=== PATIENT | female | born 1930 | race Caucasian/White ===

== ENCOUNTER 2016-10-07 10:44 | Day surgery (SDC) | payer OTHER ==
[~2016-10-07] VITALS: Ht 158.8 cm; Wt 81.0 kg
[~2016-10-07 10:44] MED LIST: ALBUTEROL SULF8.5 GM IH; ALPRAZOLAM0.25 M2 PO; AMLODIPINE BESY10 MG PO; AMLODIPINE BESYL5 MG PO; ASPIRIN325 MG PO; AZELASTINE137 MCG/0. BOTH NARES; BENADRYL25 MG PO; CALCITRIOL0.25 MCG PO; CLARITIN10 M3 PO; COUMADIN2 MG PO; COUMADIN2.5 MG PO; COUMADIN4 MG PO; COUMADIN5 MG PO; COUMADIN7.5 MG PO; DEBROX15 ML RIGHT EAR; DUONEB 2.5-0.5 M3 ML AEROSOL; FERREX 150 PLU1 EACH PO; FISH OIL 1,0001 EA10 PO; FISH OIL500 MG PO; FLONASE ALLERG9.9 ML BOTH NARES; FLONASE16 G1 BOTH NARES; FUROSEMIDE40 MG PO; GERI-LANTA LIQ355 ML PO; HUMALOG100 UNIT/1 SC; HYDROCODON-ACE1 EA11 PO; HYDROCODON-ACE1 EACH PO; LASIX80 MG PO; LIPITOR20 MG PO; LORATADINE10 M2 PO; LORTAB 5-325 M1 EACH PO; METOLAZONE5 MG PO; METOPROLOL TART50 MG PO; NEPHRO-VITE,1 TABLET PO; NIFEREX-150,FE150 MG PO; NITROSTAT0.4 MG SL; NOVOLOG PE100 UNITS/ SC; OMEPRAZOLE40 M1 PO; PAIN RELIEF650 MG PO; PROAIR RESPICL90 MCG IH; PROTONIX20 MG PO; PROTONIX40 MG PO; SENNA S TABLET1 EACH PO; SINGULAIR10 MG PO; SYMBICORT60 INHALAT IH; TYLENOL REGULA325 MG PO; VITAMIN D31000 UNI2 PO; VITAMIN D31000 UNIT PO; WARFARIN SODIU2.5 MG PO; WARFARIN SODIU7.5 MG PO; ZOLOFT50 MG PO; ZYRTEC10 M2 PO; ZYRTEC10 M3 PO
[2016-10-07 12:07] LABS: POINT-OF-CARE METER ID UU13113696
[2016-10-07 13:01] LABS: METH RESISTANT S AUREUS PCR NEGATIVE (NEGATIVE)
[2016-10-07 13:02] LABS: PROBE CHECK PASS; SPECIMEN PROCESSING CONTROL PASS
== END 2016-10-07 13:35 | disposition home or self-care (01) ==
LOC: CATH 10:44
PROVIDERS: Surgery
DX: T82.858A Stenosis of other vascular prosthetic devices, implants and grafts, initial encounter (principal); Y83.2 Surgical operation with anastomosis, bypass or graft as the cause of abnormal reaction of the patient, or of later complication, without mention of misadventure at the time of the procedure; I12.0 Hypertensive chronic kidney disease with stage 5 chronic kidney disease or end stage renal disease; E11.22 Type 2 diabetes mellitus with diabetic chronic kidney disease; N18.6 End stage renal disease; Z99.2 Dependence on renal dialysis; M19.90 Unspecified osteoarthritis, unspecified site; Z98.61 Coronary angioplasty status; Z95.0 Presence of cardiac pacemaker
CPT/HCPCS: 82948; 87641; C1725; C1769; C1894; J1644; J2250; J3010

== ENCOUNTER 2017-01-11 09:20 | Day surgery (SDC) | payer OTHER ==
[~2017-01-11] VITALS: Ht 157.5 cm; Wt 85.7 kg
[2017-01-11 10:10] LABS: POINT-OF-CARE METER ID UU13113696
[2017-01-11 11:17] LABS: METH RESISTANT S AUREUS PCR NEGATIVE (NEGATIVE)
[2017-01-11 11:23] LABS: PROBE CHECK PASS; SPECIMEN PROCESSING CONTROL PASS
[2017-01-11 11:32] LABS: POINT-OF-CARE METER ID UU13113819
== END 2017-01-11 11:47 | disposition home or self-care (01) ==
LOC: CATH 09:20
PROVIDERS: Surgery
DX: T82.858A Stenosis of other vascular prosthetic devices, implants and grafts, initial encounter (principal); I12.0 Hypertensive chronic kidney disease with stage 5 chronic kidney disease or end stage renal disease; E11.22 Type 2 diabetes mellitus with diabetic chronic kidney disease; N18.6 End stage renal disease; Z99.2 Dependence on renal dialysis; I25.10 Atherosclerotic heart disease of native coronary artery without angina pectoris; Z95.1 Presence of aortocoronary bypass graft; Z95.0 Presence of cardiac pacemaker; M19.90 Unspecified osteoarthritis, unspecified site; Z79.4 Long term (current) use of insulin; Z79.01 Long term (current) use of anticoagulants; Z99.3 Dependence on wheelchair; Y83.2 Surgical operation with anastomosis, bypass or graft as the cause of abnormal reaction of the patient, or of later complication, without mention of misadventure at the time of the procedure
CPT/HCPCS: 82948; 87641; C1725; C1769; C1874; C1894; J1644; J2250; J3010